=== PATIENT | female | born 1975 | race Two or more races ===

== ENCOUNTER → 2017-02-21 | Outpatient (CLI) | payer OTHER ==
--- NOTE | ~2017-02-21 | CR7 ---
[facility] A Service of [facility] RADIOLOGY TEXT RESULTS PATIENT: RODRIGUEZ QUINTERO LOCATION: [facility] : 71 UNIT #: [id number] AGE: [address]: ADÁN RECINOS APRN SEX: F ORDER DR: [id number] [facility] [address] [place], [place] [address] [id number] O MR#: [id number] #: [id number] NAME: RODRIGUEZ QUINTERO : 1975 SEX: F STUDY DATE/TIME: 02/21/2017 11:03 UNIT: [facility] ROOM: STUDY DESCRIPTION: CR Abdomen Single AP View Attending Physician: Adán Recinos A.P.R.N. Ordering Physician: Adán Recinos A.P.R.N. Primary Care Physician: No Primary Care Physician MEDICAL IMAGING REPORT This report is preliminary unless electronic signature is present EXAM Abdominal radiograph. INDICATION Generalized abdominal and back pain for the past 2 weeks. PROCEDURE 2 supine views of the abdomen COMPARISON None FINDINGS Moderate colonic stool burden, particularly in the right side of the colon. No visible radiodense urinary system calculus. There is a rounded calcification left hemipelvis. It measures approximately 6 mm. It could represent stool or possibly a phlebolith. IMPRESSION 1. No visible radiodense calculus. There is a 6 mm possible calcification left hemipelvis. It is subtle and could represent stool or a phlebolith. It is favored not to represent a distal ureteral calculus, but if there is clinical suspicion for a distal left ureteral stone with CT would be helpful. 2. Moderate stool burden in the right side of the colon. Dictated by... Nicolas Herring M.D. THIS IS AN ELECTRONICALLY VERIFIED REPORT Nicolas Herring M.D. at 02/24/2017 7:43 AM [facility] A Service of [facility] RADIOLOGY TEXT RESULTS PATIENT: RODRIGUEZ QUINTERO LOCATION: [facility] : 71 UNIT #: [id number] AGE: [address]: ADÁN RECINOS APRN SEX: F ORDER DR: ANDREE/vidhya TD: 02/21/2017 15:24 JOB #: [id number] MEDICAL IMAGING REPORT Page 1 of 1 COPY
--- NOTE | ~2017-02-21 | CR184 ---
[facility] A Service of [facility] RADIOLOGY TEXT RESULTS PATIENT: RODRIGUEZ QUINTERO LOCATION: [facility] : 71 UNIT #: [id number] AGE: [address]: ADÁN RECINOS APRN SEX: F ORDER DR: [id number] [facility] [address] [place], [place] [address] [id number] O MR#: [id number] Acc #: [id number] NAME: RODRIGUEZ QUINTERO : 1975 SEX: F STUDY DATE/TIME: 02/21/2017 11:03 UNIT: [facility] ROOM: STUDY DESCRIPTION: CR Lumbar Spine Min 4 Views Attending Physician: Adán Recinos A.P.R.N. Ordering Physician: Adán Recinos A.P.R.N. Primary Care Physician: No Primary Care Physician MEDICAL IMAGING REPORT This report is preliminary unless electronic signature is present EXAM Lumbar spine 5 views 02/21/2017 HISTORY Low back pain with left lower extremity radiculopathy. Pain radiates to left knee for 2 weeks. No known injury. FINDINGS 5 views of the lumbar spine demonstrate no fracture. The posterior vertebral body line is intact and there is no anterolisthesis or retrolisthesis. There is mild disc space narrowing at L5-S1. Small anterior osteophytes are seen from L3-L5. IMPRESSION Minimal degenerative change in the lumbar spine. No acute abnormality. Dictated by... Austen Vargas M.D. THIS IS AN ELECTRONICALLY VERIFIED REPORT Austen Vargas M.D. at 02/22/2017 3:05 PM ROYA/rommel TD: 02/22/2017 00:37 JOB #: [id number] MEDICAL IMAGING REPORT Page 1 of 1 COPY
== END | disposition home or self-care (01) ==
LOC: CRAD 10:48
DX: M54.5 Low back pain (principal); R31.9 Hematuria, unspecified; M47.896 Other spondylosis, lumbar region
CPT/HCPCS: 72110; 74000